=== PATIENT | male | born 1985 | race American Indian/Alaskan Native ===

== ENCOUNTER 2020-11-23 12:01 | Emergency (ER) | payer MEDICAID ==
[2020-11-23 12:10] VITALS: BP 123/69
[2020-11-23] MEDS ORDERED: methylPREDNISolone ACETATE 80 MG/1 ML INJ IM ONE (12:48)
[2020-11-23] MEDS ORDERED: FAMOTIDINE 20 MG TAB PO ONE (12:48)
[2020-11-23] MEDS ORDERED: hydrOXYzine PAMOATE 25 MG CAP PO ONE (12:48)
--- NOTE | 2020-11-23 12:51 | Emergency Department Report ---
HPI - General Chief Complaint: Allergic Reaction PUI?: No Time Seen by Provider: 11/23/20 12:37 - HPI HPI: Patient is a pleasant 35-year-old -[place] male that comes to the ER with a rash on his arms and legs consistent with scabies. It started distally and is now working its way proximal. There are lines between the lesions. His itching has been so bad on his ankle that he has secondary cellulitis. 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 Patient denies any shortness of breath or chest pain. He is controlling secretions. Taking p.o. Patient is ambulatory nontoxic and [id number] on arrival to [facility] ED Past Medical Hx - Past Medical History Previous Medical History?: No - Surgical History Past Surgical History?: No - Medications Home Medications: Home Medications Medication Instructions Recorded Confirmed Last Taken Type Cetirizine HCl [ZyrTEC] 10 mg PO DAILY #30 capsule 11/23/20 Unknown Rx Permethrin 5% [Acticin 5% CREAM] 1 applicatio TP ONCE #1 tube 11/23/20 Unknown Rx cephALEXin [Keflex] 500 mg PO Q12HR #20 cap 11/23/20 Unknown Rx hydrOXYzine PAMOATE [Vistaril] 25 mg PO Q6HR PRN #20 capsule 11/23/20 Unknown Rx predniSONE [Deltasone] 20 mg PO DAILY #5 tablet 11/23/20 Unknown Rx ED Review of Systems ROS: Stated complaint: BAD ITCHING PROBLEM Other details as noted in HPI Comment: All other systems reviewed and negative Physical Exam - Physical Exam Vital Signs: Vital Signs 11/23/20 12:08 Temperature 98.0 F Pulse Rate 85 Respiratory 20 Rate Blood Pressure 123/69 O2 Sat by Pulse 97 Oximetry General: Alert and oriented x4 no acute distress Physical Exam: Macular papular rash on bilateral arms and legs. Consistent with scabies. There are lines between the lesions. Patient is pruritic. He has itched his ankle so much that he has a red area of cellulitis surrounding the lesions. S1-S2 Lungs clear Neuro intact Abdomen soft nontender ED Course Vital Signs 11/23/20 12:08 Temperature 98.0 F Pulse Rate 85 Respiratory 20 Rate Blood Pressure 123/69 O2 Sat by Pulse 97 Oximetry ED Medical Decision Making - Medical Decision Making Rash consistent with scabies. Patient given Depo-Medrol and Vistaril. Patient being discharged home with discharge plan of care including treatment for his cellulitis and PCP follow-up. Patient verbalizes understanding of the need for follow-up. He verbalizes understanding of how to use the Elimite. During patient stay ABCs remained intact and vital signs are stable. Vital Signs 11/23/20 12:08 Temperature 98.0 F Pulse Rate 85 Respiratory 20 Rate Blood Pressure 123/69 O2 Sat by Pulse 97 Oximetry - Differential Diagnosis Scabies Critical care attestation.: If time is entered above; I have spent that time in minutes in the direct care of this critically ill patient, excluding procedure time. ED Disposition Clinical Impression: Scabies, Cellulitis Disposition: [id number] TO HOME OR SELFCARE Is pt being admited?: No Does the pt Need Aspirin: No Condition: Stable Instructions: Scabies, Adult Additional Instructions: clean home as we discussed meds as ordered Prescriptions: Permethrin 5% [Acticin 5% CREAM] 1 applicatio TP ONCE #1 tube predniSONE [Deltasone] 20 mg PO DAILY #5 tablet cephALEXin [Keflex] 500 mg PO Q12HR #20 cap hydrOXYzine PAMOATE [Vistaril] 25 mg PO Q6HR PRN #20 capsule PRN Reason: Itching Cetirizine HCl [ZyrTEC] 10 mg PO DAILY #30 capsule Referrals: DUNG MILES MD [Staff Physician] - 3-5 Days Forms: Work/School Release Form(ED) Time of Disposition: 12:48
== END 2020-11-23 13:54 | disposition home or self-care (01) ==
LOC: ED 12:01
DX: B86 Scabies (principal); L03.116 Cellulitis of left lower limb; L03.115 Cellulitis of right lower limb; Z79.899 Other long term (current) drug therapy
CPT/HCPCS: 96372; 99282; J1040; Q0177